=== PATIENT | female | born 1995 | race Caucasian/White ===

== ENCOUNTER 2023-11-06 10:51 | Emergency (ER) | payer OTHER ==
[~2023-11-06] VITALS: Ht 165.1 cm; Wt 56.7 kg
[2023-11-06] MEDS ORDERED: IBUPROFEN (11:25)
[2023-11-06] MEDS ORDERED: EXCEDRIN (11:25)
--- NOTE | 2023-11-06 11:47 | NUR ---
md Gamez at bedside for MSE
--- NOTE | 2023-11-06 11:50 | NUR ---
Patient presents to ed via walk in with the complaints of 2 near syncopal episodes today at home, denies pain, states she is on her menstrual cycle and believes the syncopal episodes are are related, alert and oriented x4, noted walking with steady gait, 20g iv placed in left AC, blood and urine sample sent to lab
[2023-11-06 12:03] LABS: CARBON DIOXIDE 27 mmol/L (21-32); CHLORIDE 105 mmol/L (98-107); GLUCOSE 91 mg/dL (74-106); SODIUM SERUM 139 mmol/L (136-145); UREA NITROGEN, BLOOD 10 mg/dL (7-18)
[2023-11-06 12:11] LABS: ALANINE AMINOTRANSFERASE 19 U/L (14-59); ALBUMIN 4.2 g/dL (3.4-5.0); ALKALINE PHOSPHATASE 45 U/L (50-136); ASPARTATE AMINOTRANSFERASE 10 U/L (15-37); BILIRUBIN,DIRECT 0.3 mg/dL (0.0-0.2); BILIRUBIN,TOTAL 1.5 mg/dL (0.2-1.0); TOTAL PROTEIN, SERUM 8.1 g/dL (6.4-8.2)
[2023-11-06 12:11] LABS: *BILIRUBIN,URIN NEGATIVE (NEGATIVE); *CLARITY,URINE CLEAR (CLEAR); *COLOR,URINE YELLOW (YELLOW); *KETONES,URINE NEGATIVE (NEGATIVE); *PROTEIN,URINE NEGATIVE (NEGATIVE); *UROBILINOGEN,URINE 0.2 E.U./dl (NORMAL); LEUKOCYTE ESTERASE ,URINE NEGATIVE (NEGATIVE); NITRITE, URINE NEGATIVE (NEGATIVE); UGLUCOSE NEGATIVE (NEGATIVE)
[2023-11-06 12:12] LABS: *URINE HCG, QUAL NEGATIVE (NEGATIVE)
[2023-11-06 12:18] LABS: *BLOOD, URINE TRACE (NEGATIVE)
--- NOTE | 2023-11-06 13:24 | NUR ---
patient noted walking with steady gait, denies pain, alert and oriented x4,Patient discharged to home in stable condition. Written and verbal after care instructions given. IV removed Patient verbalizes understanding of instructions. Stressed follow up or return to ER for worsening s/s.
[2023-11-06 13:26] VITALS: BP 117/67; TEMP 97.9; O2SAT 99
[2023-11-06 13:34] LABS: BASOPHILS # (AUTO) 0.1 K/UL (0.0-0.2); BASOPHILS % (AUTO) 0.7 % (0.0-2.0); EOSINOPHILS # (AUTO) 0.1 K/uL (0.0-0.7); EOSINOPHILS % (AUTO) 0.9 % (0.0-7.0); HEMATOCRIT 42.2 % (31.2-41.9); HEMOGLOBIN 14.4 g/dL (10.9-14.3); LYMPHOCYTES # (AUTO) 1.5 K/uL (0.8-4.8); LYMPHOCYTES % (AUTO) 18.1 % (20.5-51.5); MEAN CORPUSCULAR HEMOGLOBIN 31.5 uug (24.7-32.8); MEAN CORPUSCULAR HGB CONC 34 g/dL (32.3-35.6); MEAN CORPUSCULAR VOLUME 92.5 fL (75.5-95.3); MONOCYTES # (AUTO) 0.5 K/uL (0.1-1.30); MONOCYTES % (AUTO) 5.6 % (0.0-11.0); NEUTROPHILS # (AUTO) 6.2 K/uL (1.8-8.9); NEUTROPHILS % (AUTO) 74.7 % (38.5-71.5); PLATELET COUNT (AUTO) 241 K/uL (179-408); RED BLOOD CELL COUNT(AUTO) 4.56 MIL/uL (3.63-4.92); WHITE BLOOD COUNT (AUTO) 8.2 K/uL (3.8-11.8)
[2023-11-06 15:04] LABS: BACTERIA,URINE NONE SEEN /HPF (NONE SEEN); RBC,URINE 0-3 /HPF (0-3); WBC,URINE 0-3 /HPF (0-3)
[2023-11-06 15:05] LABS: SQUAMOUS EPITHELIAL CELL,UR FEW /HPF (NONE SEEN)
== END 2023-11-06 13:27 | disposition home or self-care (01) ==
LOC: ER 10:51
DX: N94.6 Dysmenorrhea, unspecified (principal); R55 Syncope and collapse; R10.2 Pelvic and perineal pain; G43.909 Migraine, unspecified, not intractable, without status migrainosus; Z79.899 Other long term (current) drug therapy
CPT/HCPCS: 99284; 76856; 80076; 80048; 81001; 84703; 85025; 85730; 84484; 84702; 36415; 93005; J7040; A4606; A4663